=== PATIENT | male | born 1955 | race African-American/Black ===

== ENCOUNTER 2017-03-29 21:56 | Emergency (ER) | payer MEDICAID ==
[~2017-03-29] VITALS: Ht 175.3 cm; Wt 100.0 kg
[~2017-03-29 21:56] MED LIST: ASPIRIN PO; LANS15CA12; METFORMIN; METOPROLOL; NITROGLYCERIN
[2017-03-30 02:27] LABS: INR 1.1; PROTHROMBIN TIME 11.9 sec (9.4-11.6)
[2017-03-30 02:28] LABS: BASOPHILS % 0.9 % (0.0-2.0); EOSINOPHILS % 3.5 % (0.0-5.0); HEMATOCRIT. 45.8 % (42.0-52.0); HEMOGLOBIN. 15.4 g/dL (14.0-18.0); LYMPHOCYTES % 29.4 % (20.0-50.0); MEAN CORPUSCULAR VOLUME 95.1 fL (80.0-94.0); MEAN PLATELET VOLUME 7.6 fl (7.4-10.4); MONOCYTES % 10.3 % (2.0-8.0); NEUTROPHILS % 55.9 % (40.0-76.0); PLATELET 248 x1000/uL (130-400); RED BLOOD CELL COUNT 4.81 mill/uL (4.7-6.1)
[2017-03-30 02:34] LABS: CARBON DIOXIDE 27 mEq/L (21-32); CHLORIDE 106 mEq/L (98-107); TROPONIN I < 0.02 ng/mL (0.00-0.04)
[2017-03-30 06:00] VITALS: BP 142/93
== END 2017-03-30 06:40 | disposition home or self-care (01) ==
LOC: ER 22:38
DX: R07.89 Other chest pain (principal); E83.51 Hypocalcemia; E11.9 Type 2 diabetes mellitus without complications; I10 Essential (primary) hypertension; Z88.0 Allergy status to penicillin; Z79.82 Long term (current) use of aspirin
CPT/HCPCS: 36415; 71010; 80053; 83690; 84484; 85025; 85610; 85730; 93005; 99285; Z7610

== ENCOUNTER 2017-09-07 21:30 | Emergency (ER) | payer MEDICAID ==
[~2017-09-07] VITALS: Ht 175.3 cm; Wt 100.0 kg
[2017-09-07] MEDS ORDERED: MORPHINE SULFATE 4 MG/ML CPJ (NOT FOR IM USE) IV STA (22:47)
[2017-09-07] MEDS ORDERED: METHYLPREDNISOLONE SOD SUCC 125 MG/2 ML VIAL IV STA (22:47)
[2017-09-07] MEDS ORDERED: ONDANSETRON HCL 4MG/2ML VIAL IV STA (22:47)
[2017-09-07] MEDS ORDERED: IPRATROPIUM/ALBUTEROL 0.5-3(2.5)MG/3ML NEB HHN ONE (23:00)
[2017-09-07] MEDS ORDERED: LEVOFLOXACIN 750MG PREMIX 150 ML IV ONE (23:00)
[2017-09-08 01:38] LABS: BASOPHILS % 0.9 % (0.0-2.0); EOSINOPHILS % 2.4 % (0.0-5.0); HEMATOCRIT. 41.1 % (42.0-52.0); HEMOGLOBIN. 14.1 g/dL (14.0-18.0); LYMPHOCYTES % 23.4 % (20.0-50.0); MEAN CORPUSCULAR HEMOGLOBIN 32.3 pg (28.0-32.0); MEAN CORPUSCULAR VOLUME 94.2 fL (80.0-94.0); MEAN PLATELET VOLUME 7.5 fl (7.4-10.4); NEUTROPHILS % 62.3 % (40.0-76.0); PLATELET 231 x1000/uL (130-400); RED BLOOD CELL COUNT 4.36 mill/uL (4.7-6.1); RED CELL DISTRIBUTION WIDTH 14.3 % (11.6-14.6)
[2017-09-08 01:40] LABS: CHLORIDE 104 mEq/L (98-107)
[2017-09-08 01:43] LABS: INR 1.1; PARTIAL THROMBOPLASTIN TIME 26.8 sec (23.4-31.0); PROTHROMBIN TIME 11.2 sec (9.4-11.6)
[2017-09-08] MEDS ORDERED: MORPHINE SULFATE 4 MG/ML CPJ (NOT FOR IM USE) IV ONE (06:00)
[2017-09-08] MEDS ORDERED: ONDANSETRON HCL 4MG/2ML VIAL IV ONE (06:00)
[2017-09-08 06:23] VITALS: BP 118/79
== END 2017-09-08 07:47 | disposition left against medical advice (07) ==
LOC: ER 21:30 → EDBEDREQTM 09-08 02:40 → EDBEDREQ 09-08 02:40 → ENRESERV 09-08 07:15 → CANRESERV 09-08 07:15 → ER 09-08 07:47 → CANBEDREQ 09-08 16:18
DX: R07.89 Other chest pain (principal); R06.02 Shortness of breath; J45.909 Unspecified asthma, uncomplicated; M79.602 Pain in left arm; E11.9 Type 2 diabetes mellitus without complications; I10 Essential (primary) hypertension; I25.10 Atherosclerotic heart disease of native coronary artery without angina pectoris; F17.210 Nicotine dependence, cigarettes, uncomplicated; Z95.5 Presence of coronary angioplasty implant and graft; I25.2 Old myocardial infarction; Z79.84 Long term (current) use of oral hypoglycemic drugs; Z88.0 Allergy status to penicillin; Z79.82 Long term (current) use of aspirin; Z71.6 Tobacco abuse counseling
CPT/HCPCS: 36415; 71045; 72170; 80053; 83880; 84443; 84484; 85025; 85610; 85730; 93005; 94640; 96365; 96375; 99285; J1956; J2270; J2405; J2930; J7620

== ENCOUNTER 2018-03-10 19:33 | Emergency (ER) | payer MEDICAID ==
[~2018-03-10] VITALS: Ht 172.7 cm; Wt 82.0 kg
[2018-03-10 19:48] VITALS: BP 134/81
== END 2018-03-11 02:00 | disposition left against medical advice (07) ==
LOC: ER 19:33
DX: Z53.21 Procedure and treatment not carried out due to patient leaving prior to being seen by health care provider (principal)
CPT/HCPCS: 93005

== ENCOUNTER 2018-04-08 00:51 | Emergency (ER) | payer MEDICAID ==
[~2018-04-08] VITALS: Ht 172.7 cm; Wt 102.0 kg
[2018-04-08] MEDS ORDERED: ASPIRIN 81MG TABLET PO ONE (01:45)
[2018-04-08 02:08] LABS: BASOPHILS % 0.8 % (0.0-2.0); EOSINOPHILS % 2.6 % (0.0-5.0); HEMATOCRIT. 46.3 % (42.0-52.0); HEMOGLOBIN. 15.7 g/dL (14.0-18.0); LYMPHOCYTES % 24.8 % (20.0-50.0); MEAN CORPUSCULAR HEMOGLOBIN 31.8 pg (28.0-32.0); MEAN CORPUSCULAR VOLUME 93.9 fL (80.0-94.0); MEAN PLATELET VOLUME 7.2 fl (7.4-10.4); NEUTROPHILS % 62.8 % (40.0-76.0); PLATELET 263 x1000/uL (130-400); RED BLOOD CELL COUNT 4.93 mill/uL (4.7-6.1); RED CELL DISTRIBUTION WIDTH 14.5 % (11.6-14.6)
[2018-04-08 02:10] LABS: CHLORIDE 106 mEq/L (98-107)
[2018-04-08 04:22] VITALS: BP 112/65
[2018-04-08] MEDS ORDERED: ENOXAPARIN 100MG/ML SYR SUBCUT NR (05:00)
== END 2018-04-08 06:47 | disposition left against medical advice (07) ==
LOC: ER 00:51 → CANBEDREQ 07:56
DX: I21.4 Non-ST elevation (NSTEMI) myocardial infarction (principal); I25.10 Atherosclerotic heart disease of native coronary artery without angina pectoris; E11.9 Type 2 diabetes mellitus without complications; I11.9 Hypertensive heart disease without heart failure; J45.909 Unspecified asthma, uncomplicated; F17.200 Nicotine dependence, unspecified, uncomplicated; F12.10 Cannabis abuse, uncomplicated; F11.10 Opioid abuse, uncomplicated; Z98.61 Coronary angioplasty status; Z79.84 Long term (current) use of oral hypoglycemic drugs; Z88.0 Allergy status to penicillin; Z79.82 Long term (current) use of aspirin
CPT/HCPCS: 36415; 71045; 80053; 84484; 85025; 93005; 96372; 99284; J1650

== ENCOUNTER 2018-05-14 00:39 | Emergency (ER) | payer MEDICAID ==
[~2018-05-14] VITALS: Ht 175.3 cm; Wt 104.0 kg
[2018-05-14 01:47] VITALS: BP 134/100
== END 2018-05-14 07:35 | disposition left against medical advice (07) ==
LOC: ER 00:39
DX: R07.89 Other chest pain (principal); Z53.21 Procedure and treatment not carried out due to patient leaving prior to being seen by health care provider
CPT/HCPCS: 93005

== ENCOUNTER 2018-06-11 01:41 | Emergency (ER) | payer MEDICAID ==
[~2018-06-11] VITALS: Ht 172.7 cm; Wt 87.0 kg
[2018-06-11] MEDS ORDERED: KETOROLAC 30MG/ML VIAL IV STA (04:52)
[2018-06-11 05:11] VITALS: BP 142/80
== END 2018-06-11 07:20 | disposition home or self-care (01) ==
LOC: ER 01:41
DX: R07.89 Other chest pain (principal); E11.9 Type 2 diabetes mellitus without complications; E78.00 Pure hypercholesterolemia, unspecified; I10 Essential (primary) hypertension; I25.10 Atherosclerotic heart disease of native coronary artery without angina pectoris; Z88.0 Allergy status to penicillin; Z79.899 Other long term (current) drug therapy; Z98.890 Other specified postprocedural states
CPT/HCPCS: 71045; 99283; J1885

== ENCOUNTER 2018-09-19 02:09 | Emergency (ER) | payer MEDICAID ==
[~2018-09-19] VITALS: Ht 170.2 cm; Wt 96.2 kg
[2018-09-19] MEDS ORDERED: IBUPROFEN 600MG TABLET PO ONE (06:30)
[2018-09-19 06:35] LABS: BASOPHILS % 0.9 % (0.0-2.0); EOSINOPHILS % 4.1 % (0.0-5.0); HEMATOCRIT. 46.2 % (42.0-52.0); HEMOGLOBIN. 15.7 g/dL (14.0-18.0); LYMPHOCYTES % 24.7 % (20.0-50.0); MEAN CORPUSCULAR HEMOGLOBIN 32.5 pg (28.0-32.0); MEAN CORPUSCULAR VOLUME 95.3 fL (80.0-94.0); MEAN PLATELET VOLUME 7.5 fl (7.4-10.4); MONOCYTES % 12.3 % (2.0-8.0); PLATELET 211 x1000/uL (130-400); RED BLOOD CELL COUNT 4.84 mill/uL (4.7-6.1); RED CELL DISTRIBUTION WIDTH 14.5 % (11.6-14.6)
[2018-09-19 06:41] LABS: CHLORIDE 105 mEq/L (98-107)
[2018-09-19 06:47] LABS: ETHANOL BLOOD < 10 mg/dL
[2018-09-19 09:00] VITALS: BP 120/82
== END 2018-09-19 09:00 | disposition home or self-care (01) ==
LOC: ER 02:09
DX: R07.89 Other chest pain (principal); F17.200 Nicotine dependence, unspecified, uncomplicated; J45.909 Unspecified asthma, uncomplicated; E11.9 Type 2 diabetes mellitus without complications; E78.00 Pure hypercholesterolemia, unspecified; Z98.890 Other specified postprocedural states; Z88.0 Allergy status to penicillin
CPT/HCPCS: 36415; 71045; 80320; 83880; 84484; 93005; 99284; 99406; G0480

== ENCOUNTER 2019-01-02 20:46 | Emergency (ER) | payer MEDICAID ==
[~2019-01-02] VITALS: Ht 170.2 cm; Wt 100.0 kg
[2019-01-02 21:54] LABS: HEMATOCRIT. 30.8 % (42.0-52.0); HEMOGLOBIN. 10.3 g/dL (14.0-18.0); MEAN CORPUSCULAR HEMOGLOBIN 31.8 pg (28.0-32.0); MEAN CORPUSCULAR VOLUME 95.4 fL (80.0-94.0); MEAN PLATELET VOLUME 7.6 fl (7.4-10.4); PLATELET 300 x1000/uL (130-400); RED BLOOD CELL COUNT 3.22 mill/uL (4.7-6.1); RED CELL DISTRIBUTION WIDTH 13.8 % (11.6-14.6)
[2019-01-02 21:56] LABS: CHLORIDE 107 mEq/L (98-107)
[2019-01-02] MEDS ORDERED: ASPIRIN 81MG TABLET PO ONE (22:30)
[2019-01-02 22:48] LABS: PLATELET ESTIMATE NORMAL
[2019-01-02] MEDS ORDERED: CLONIDINE 0.2MG TABLET PO ONE (23:00)
[2019-01-02 23:04] VITALS: BP 186/102
== END 2019-01-02 23:25 | disposition left against medical advice (07) ==
LOC: ER 21:07
DX: R07.9 Chest pain, unspecified (principal); J45.909 Unspecified asthma, uncomplicated; I11.9 Hypertensive heart disease without heart failure; F17.200 Nicotine dependence, unspecified, uncomplicated; Z88.0 Allergy status to penicillin
CPT/HCPCS: 36415; 71045; 83880; 84484; 93005; 99284

== ENCOUNTER 2019-01-05 20:34 | Emergency (ER) | payer MEDICAID ==
[~2019-01-05] VITALS: Ht 170.2 cm; Wt 90.0 kg
[2019-01-06 03:41] LABS: HEMATOCRIT. 31.9 % (42.0-52.0); HEMOGLOBIN. 10.7 g/dL (14.0-18.0); MEAN CORPUSCULAR HEMOGLOBIN 32.2 pg (28.0-32.0); MEAN CORPUSCULAR VOLUME 95.9 fL (80.0-94.0); MEAN PLATELET VOLUME 8.1 fl (7.4-10.4); PLATELET 327 x1000/uL (130-400); RED BLOOD CELL COUNT 3.33 mill/uL (4.7-6.1); RED CELL DISTRIBUTION WIDTH 14.2 % (11.6-14.6)
[2019-01-06 03:51] LABS: CHLORIDE 104 mEq/L (98-107)
[2019-01-06] MEDS ORDERED: KETOROLAC 30MG/ML VIAL IV STA (04:35)
[2019-01-06] MEDS ORDERED: ASPIRIN 81MG TABLET PO ONE (04:45)
[2019-01-06 05:31] VITALS: BP 164/97
[2019-01-06 06:10] LABS: ATYPICAL LYMPHOCYTES 1; PLATELET ESTIMATE NORMAL
== END 2019-01-06 05:34 | disposition left against medical advice (07) ==
LOC: ER 20:34
DX: R07.89 Other chest pain (principal); S40.021A Contusion of right upper arm, initial encounter; R94.39 Abnormal result of other cardiovascular function study; J45.909 Unspecified asthma, uncomplicated; I25.10 Atherosclerotic heart disease of native coronary artery without angina pectoris; E78.00 Pure hypercholesterolemia, unspecified; E11.22 Type 2 diabetes mellitus with diabetic chronic kidney disease; I12.9 Hypertensive chronic kidney disease with stage 1 through stage 4 chronic kidney disease, or unspecified chronic kidney disease; N18.9 Chronic kidney disease, unspecified; Z79.82 Long term (current) use of aspirin; Z79.84 Long term (current) use of oral hypoglycemic drugs; Z88.0 Allergy status to penicillin; X58.XXXA Exposure to other specified factors, initial encounter; Y93.89 Activity, other specified; Y92.89 Other specified places as the place of occurrence of the external cause
CPT/HCPCS: 36415; 71045; 80053; 83880; 84484; 85025; 93005; 99284; Z7610

== ENCOUNTER 2019-06-10 00:04 | Emergency (ER) | payer MEDICAID ==
[~2019-06-10] VITALS: Ht 172.7 cm; Wt 100.0 kg
[2019-06-10] MEDS ORDERED: ASPIRIN 81MG TABLET PO ONE (03:00)
[2019-06-10] MEDS ORDERED: NITROGLYCERIN 0.4MG TABLET SL SL PRN (03:00)
[2019-06-10 03:27] LABS: BASOPHILS % 1.1 % (0.0-2.0); EOSINOPHILS % 3.4 % (0.0-5.0); HEMATOCRIT. 44.6 % (42.0-52.0); HEMOGLOBIN. 14.9 g/dL (14.0-18.0); MEAN CORPUSCULAR HEMOGLOBIN 30.8 pg (28.0-32.0); MEAN CORPUSCULAR VOLUME 92.3 fL (80.0-94.0); MEAN PLATELET VOLUME 7.4 fl (7.4-10.4); MONOCYTES % 9.6 % (2.0-8.0); NEUTROPHILS % 59.9 % (40.0-76.0); PLATELET 214 x1000/uL (130-400); RED BLOOD CELL COUNT 4.83 mill/uL (4.7-6.1); RED CELL DISTRIBUTION WIDTH 15.8 % (11.6-14.6)
[2019-06-10 03:47] LABS: CHLORIDE 106 mEq/L (98-107)
[2019-06-10 05:30] VITALS: BP 127/66
== END 2019-06-10 09:25 | disposition left against medical advice (07) ==
LOC: ER 00:04 → ENRESERV 07:38 → CANRESERV 07:38 → CANBEDREQ 09:01 → ER 09:25
DX: I21.4 Non-ST elevation (NSTEMI) myocardial infarction (principal); E11.9 Type 2 diabetes mellitus without complications; E78.00 Pure hypercholesterolemia, unspecified; I10 Essential (primary) hypertension; I25.10 Atherosclerotic heart disease of native coronary artery without angina pectoris; Z88.0 Allergy status to penicillin; Z79.899 Other long term (current) drug therapy
CPT/HCPCS: 36415; 80053; 83880; 84484; 85025; 93005; 99291; Z7610; 99284

== ENCOUNTER 2019-07-28 21:50 | Emergency (ER) | payer MEDICAID ==
[~2019-07-28] VITALS: Ht 172.7 cm; Wt 100.0 kg
[2019-07-28 23:28] LABS: CHLORIDE 108 mEq/L (98-107)
[2019-07-28 23:45] LABS: BASOPHILS % 0.9 % (0.0-2.0); EOSINOPHILS % 3.8 % (0.0-5.0); HEMOGLOBIN. 14.6 g/dL (14.0-18.0); LYMPHOCYTES % 31.2 % (20.0-50.0); MEAN CORPUSCULAR HEMOGLOBIN 32.8 pg (28.0-32.0); MEAN CORPUSCULAR VOLUME 96.2 fL (80.0-94.0); MEAN PLATELET VOLUME 7.6 fl (7.4-10.4); MONOCYTES % 11.7 % (2.0-8.0); NEUTROPHILS % 52.4 % (40.0-76.0); PLATELET 214 x1000/uL (130-400); RED BLOOD CELL COUNT 4.47 mill/uL (4.7-6.1)
[2019-07-29] MEDS ORDERED: ASPIRIN 325MG TABLET PO ONE (03:15)
[2019-07-29 08:59] VITALS: BP 125/77
[2019-07-29] MEDS ORDERED: MORPHINE SULFATE 2 MG/ML CPJ (NOT FOR IM USE) IV PRN (09:30)
[2019-07-29] MEDS ORDERED: CLONIDINE 0.1MG TABLET PO PRN (09:30)
[2019-07-29] MEDS ORDERED: ENOXAPARIN 40MG/0.4ML SYR SUBCUT SCH (09:30)
[2019-07-29] MEDS ORDERED: ONDANSETRON HCL 4MG/2ML INJ IV PRN (09:30)
[2019-07-29] MEDS ORDERED: ACETAMINOPHEN 325MG TABLET PO PRN (09:30)
[2019-07-29] MEDS ORDERED: DIPHENHYDRAMINE 50MG/ML VIAL IV PRN (09:30)
== END 2019-07-29 09:28 | disposition left against medical advice (07) ==
LOC: ER 21:50 → EDBEDREQ 07-29 04:35 → ENRESERV 07-29 08:39 → CANRESERV 07-29 08:39 → CANBEDREQ 07-29 09:15 → ER 07-29 09:28
DX: R07.89 Other chest pain (principal); R53.1 Weakness; I25.10 Atherosclerotic heart disease of native coronary artery without angina pectoris; E11.9 Type 2 diabetes mellitus without complications; E78.00 Pure hypercholesterolemia, unspecified; Z98.890 Other specified postprocedural states; Z79.899 Other long term (current) drug therapy; Z88.0 Allergy status to penicillin
CPT/HCPCS: 36415; 80053; 83735; 83880; 84100; 84484; 85025; 93005; 99285

== ENCOUNTER 2019-08-01 10:44 | Emergency (ER) | payer MEDICAID, OTHER ==
[~2019-08-01] VITALS: Ht 177.8 cm; Wt 82.0 kg
[2019-08-01 10:46] VITALS: BP 147/83
== END 2019-08-01 11:35 | disposition left against medical advice (07) ==
LOC: ER 10:44
DX: R07.89 Other chest pain (principal); H10.89 Other conjunctivitis; I11.9 Hypertensive heart disease without heart failure; F14.10 Cocaine abuse, uncomplicated; E78.00 Pure hypercholesterolemia, unspecified; E11.9 Type 2 diabetes mellitus without complications; I25.10 Atherosclerotic heart disease of native coronary artery without angina pectoris; Z77.098 Contact with and (suspected) exposure to other hazardous, chiefly nonmedicinal, chemicals; Z98.61 Coronary angioplasty status; Z88.0 Allergy status to penicillin; Z79.82 Long term (current) use of aspirin; Z79.84 Long term (current) use of oral hypoglycemic drugs
CPT/HCPCS: 71045; 93005; 99283

== ENCOUNTER 2020-08-05 20:44 | Emergency (ER) | payer MEDICAID, OTHER ==
[~2020-08-05] VITALS: Ht 175.3 cm; Wt 100.0 kg
[2020-08-06 00:54] LABS: BASOPHILS % 0.9 % (0.0-2.0); EOSINOPHILS % 5.5 % (0.0-5.0); HEMATOCRIT. 43.5 % (42.0-52.0); HEMOGLOBIN. 14.6 g/dL (14.0-18.0); LYMPHOCYTES % 32.2 % (20.0-50.0); MEAN CORPUSCULAR HEMOGLOBIN 31.6 pg (28.0-32.0); MEAN CORPUSCULAR VOLUME 94.3 fL (80.0-94.0); MEAN PLATELET VOLUME 7.2 fl (7.4-10.4); MONOCYTES % 10.6 % (2.0-8.0); NEUTROPHILS % 50.8 % (40.0-76.0); PLATELET 231 x1000/uL (130-400); RED BLOOD CELL COUNT 4.61 mill/uL (4.7-6.1); RED CELL DISTRIBUTION WIDTH 14.9 % (11.6-14.6)
[2020-08-06 00:59] LABS: CHLORIDE 109 mEq/L (98-107)
[2020-08-06 01:50] VITALS: BP 130/78
== END 2020-08-06 02:00 | disposition home or self-care (01) ==
LOC: ER 20:44
DX: R07.89 Other chest pain (principal); I10 Essential (primary) hypertension; E78.00 Pure hypercholesterolemia, unspecified; E11.9 Type 2 diabetes mellitus without complications; Z99.3 Dependence on wheelchair; I25.10 Atherosclerotic heart disease of native coronary artery without angina pectoris; Z79.84 Long term (current) use of oral hypoglycemic drugs; Z79.82 Long term (current) use of aspirin; Z88.0 Allergy status to penicillin
CPT/HCPCS: 36415; 71045; 80048; 84484; 85025; 93005; 99285